=== PATIENT | male | born 1970 | race Caucasian/White ===

== ENCOUNTER 2019-05-13 12:01 | Emergency (ER) | payer SELFPAY ==
[2019-05-13 12:23] VITALS: BP 133/86
--- NOTE | 2019-05-13 13:03 | UC ---
UC General HPI - HPI Summary HPI Summary: 49 yo with 2 days of diarrhea and vomiting, onset yesterday afternoon, following a week of upper respiratory symptoms with cough and congestion. Has had about 8 episodes of emesis, and about a half dozen loose, non-bloody stools. No abdominal pain. Has been on clear fluids and last voiding several hours ago. Ate restaurant [place] food about 48 hours prior to onset. - History of Current Complaint Chief Complaint: UCGeneralIllness Stated Complaint: DIARRHEA,VOMITTING,EPSTEIN,UPSET STOMACH Time Seen by Provider: 05/13/19 12:51 Hx Obtained From: Patient Onset/Duration: Sudden Onset, Lasting Days Timing: Intermittent Episodes Lasting: - minutes Onset Severity: Moderate Current Severity: Moderate Pain Intensity: 6 Associated Signs & Symptoms: Positive: Diarrhea, Vomiting - Allergy/Home Medications Allergies/Adverse Reactions: Allergies Allergy/AdvReac Type Severity Reaction Status Date / Time No Known Allergies Allergy Verified 05/13/19 12:23 Home Medications: Home Medications NK [No Home Medications Reported] 05/13/19 [History Confirmed 05/13/19] PMH/Surg Hx/FS Hx/Imm Hx Previously Healthy: Yes - Surgical History Surgical History: Yes Surgery Procedure, Year, and Place: left knee surgery - Family History Known Family History: Positive: Non-Contributory - Social History Occupation: Employed Full-time Lives: With Family Alcohol Use: Occasionally Substance Use Type: None Smoking Status (MU): Current Every Day Smoker Amount Used/How Often: <1ppd Length of Time of Smoking/Using Tobacco: 30-35 yr Have You Smoked in the Last Year: Yes Review of Systems All Other Systems Reviewed And Are Negative: Yes Constitutional: Positive: Chills, Fatigue, Other - myalgias Skin: Positive: Negative Eyes: Positive: Negative ENT: Positive: Sinus Congestion Respiratory: Positive: Cough Cardiovascular: Positive: Negative Gastrointestinal: Positive: Vomiting, Diarrhea, Nausea Genitourinary: Positive: Negative Motor: Positive: Negative Neurovascular: Positive: Negative Musculoskeletal: Positive: Negative Neurological: Positive: Weakness Psychological: Positive: Negative Is Patient Immunocompromised?: No Physical Exam Triage Information Reviewed: Yes Appearance: No Pain Distress, Ill-Appearing - looks mildly unwell Vital Signs: Initial Vital Signs Temp 99.4 F 05/13/19 12:16 Pulse 84 05/13/19 12:16 Resp 16 05/13/19 12:16 BP 133/86 05/13/19 12:16 Pulse Ox 97 05/13/19 12:16 Eye Exam: Normal ENT: Positive: Pharyngeal erythema, TMs normal Neck: Positive: Supple, Nontender, No Lymphadenopathy Respiratory: Positive: Lungs clear, Normal breath sounds Cardiovascular: Positive: RRR, No Murmur Abdomen Description: Positive: Nontender, No Organomegaly, Soft. Negative: Distended, Guarding Bowel Sounds: Positive: Present Musculoskeletal Exam: Normal Neurological Exam: Normal Psychological Exam: Normal Skin Exam: Normal Course/Dx - Course Course Of Treatment: ondansetron for nausea, rehydration, off work. - Diagnoses Provider Diagnosis: Gastroenteritis Discharge ED - Sign-Out/Discharge Documenting (check all that apply): Patient Departure All imaging exams completed and their final reports reviewed: No Studies - Discharge Plan Condition: Stable Disposition: HOME Patient Education Materials: Gastroenteritis (ED), Nutrition Tips for Relief of Diarrhea (ED) Forms: *Work Release Referrals: No Primary Care Phys,NOPCP [Primary Care Provider] - Additional Instructions: You have been given ondansetron to help with nausea and decrease the risk of further vomiting. Continue clear fluids, and advance to a diarrhea diet as your appetite returns. Follow up if you have decreased urine output, worsening abdominal pain, or fever. - Billing Disposition and Condition Condition: STABLE Disposition: Home
[2019-05-13] MEDS ORDERED: Ondansetron ODT TAB* 4 MG PO ONE (13:04)
== END 2019-05-13 13:20 | disposition home or self-care (01) ==
LOC: UCCORT 12:01
DX: K52.9 Noninfective gastroenteritis and colitis, unspecified (principal); R51 Headache; R53.83 Other fatigue; R09.89 Other specified symptoms and signs involving the circulatory and respiratory systems; M79.10 Myalgia, unspecified site; F17.210 Nicotine dependence, cigarettes, uncomplicated
CPT/HCPCS: 99202; A9270-GY; G0463